=== PATIENT | female | born 1940 | race American Indian/Alaskan Native ===

== ENCOUNTER 2018-10-08 20:23 | Inpatient (IN) | payer MEDICARE ==
[~2018-10-08 20:23] MED LIST: ADRENALIN ONE
[2018-10-08] MEDS ORDERED: SODIUM CHLORIDE FLUSH SYRINGE 10 ML IV PRN (20:34)
[2018-10-08] MEDS ORDERED: PROVENTIL IH PRN (20:34)
[2018-10-08] MEDS ORDERED: NACL 0.9% 1000 ML 1,000 ML IV ONE ×3 (20:37→23:55)
[2018-10-08] MEDS ORDERED: LEVOPHED DRIP 4 MG/NS 250 ML 4 MG/250 ML BAG IV ONE (20:38)
--- NOTE | 2018-10-08 20:38 | History and Physical Report ---
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 Pt is unresponsive and unable to provide history. Pt was found down and unresponsive today by SNF staff. EMS notified and upon arrival the patient was found to be unresponsive with what EMS reports as blood in her mouth. Pt was found to be unable to protect her airway. Pt intubated in the field and transported to [facility]. Pt experienced cardiac arrest en route. Pt treated with initiation of ACLs protocol. Pt arrived to ED in cardiac arrest. Pt seen and evaluated in ED and treated with continuation of ACLS protocol with return of perfusing cardiac rhythm. Pt found to have Acute Respiratory Failure, Acute renal Failure, Hypokalemia, Hypocalcemia, Acidosis, and Encephlopathy. No further history obtainable. No prior admission for review. No medication listed at time of admission for reconciliation. Pt admitted to ICU, and initiated on IV pressor support. Past History Past Medical History: other (Unable to Obtain) Past Surgical History: Other (PICC line placement) Social history: single Family history: no significant family history, other (Unable to obtain) Medications and Allergies Allergies Allergy/AdvReac Type Severity Reaction Status Date / Time ciprofloxacin [From Cipro] Allergy Anaphylaxis Verified 10/08/18 21:10 iodine Allergy Anaphylaxis Verified 10/08/18 21:11 Home Medications Medication Instructions Recorded Confirmed Last Taken Type Unobtainable 10/08/18 10/08/18 Unknown History Active Meds: Active Medications Albuterol (Proventil) 2.5 mg IH Q3HRT PRN PRN Reason: Shortness Of Breath Sodium Chloride (Nacl 0.9% 1000 Ml) 1,000 mls @ 999 mls/hr IV BOLUS ONE Stop: 10/08/18 21:37 Sodium Chloride (Nacl 0.9% 1000 Ml) 1,000 mls @ 42 mls/hr IV ONCE ONE Stop: 10/09/18 20:25 Sodium Chloride (Sodium Chloride Flush Syringe 10 Ml) 10 ml IV BID ADOLFO Sodium Chloride (Sodium Chloride Flush Syringe 10 Ml) 10 ml IV PRN PRN PRN Reason: LINE FLUSH Review of Systems ROS unobtainable: due to endotracheal tube, due to mental status Exam - Constitutional General appearance: Present: severe distress - EENT Eyes: Present: miosis - Neck Neck: Present: supple, normal ROM - Respiratory Respiratory effort: labored Respiratory: bilateral: diminished, rhonchi - Cardiovascular Heart Sounds: Present: S1 & S2. Absent: rub, click - Extremities Extremities: pulses symmetrical Extremity abnormal: edema Peripheral Pulses: within normal limits (diminished, 1,= BUE/BLE) - Abdominal General gastrointestinal: Present: soft, non-tender, non-distended, normal bowel sounds Female genitourinary: Present: normal - Integumentary Integumentary: Present: clear, warm, dry - Musculoskeletal Musculoskeletal: generalized weakness - Psychiatric Psychiatric: no appropriate mood/affect, no intact judgment & insight, no memory intact - Neurologic Neurologic: CNII-XII intact, no moves all extremities, no gait normal Results - Labs CBC & Chem 7: 10/08/18 20:39 10/08/18 20:39 Assessment and Plan - Patient Problems (1) Respiratory failure Current Visit: Yes Status: Acute Qualifiers: Chronicity: acute Respiratory failure complication: hypoxia Qualified Code(s): J96.01 - Acute respiratory failure with hypoxia Plan to address problem: Admit to ICU, Pt intubated, sedated, placed on vent support, Chest X ray, CT chest, supplemental oxygen, nebulizer therapy, wean vent as tolerated, pulse oximetry, The high probability of a clinically significant, sudden or life threatening deterioration of the [cardiac, renal, neuro, respiratory] system(s) required my full and direct attention, intervention and personal management. The aggregate critical care time was [90] minutes. This time is in addition to time spent performing reported procedures but includes the following: [x] Data Review and interpretation [x] Patient assessment and monitoring of vital signs [x] Documentation [x] Medication orders and management (2) Hypocalcemia syndrome Current Visit: Yes Status: Acute Plan to address problem: IV calcium repletion, repeat calcium level in AM, Nephrology consulted, (3) Acidosis Current Visit: Yes Status: Acute Plan to address problem: IVF resuscitation therapy, supportive care. (4) ARF (acute renal failure) with tubular necrosis Current Visit: Yes Status: Acute Plan to address problem: IVF resuscitation therapy, nephrology consulted in ED (5) Hypokalemia Current Visit: Yes Status: Acute Plan to address problem: Repleted, in ED, supportive care, repeat bmp in am. (6) Cardiac arrest Current Visit: Yes Status: Acute Plan to address problem: PT treated IAW ACLS protocol with return of perfusing cardiac rhythm, Pt initiated on IV pressor support. (7) GI bleed Current Visit: Yes Status: Acute Qualifiers: GI bleed type/associated pathology: unspecified gastrointestinal hemorrhage type Qualified Code(s): K92.2 - Gastrointestinal hemorrhage, unspecified Plan to address problem: GI consulted in ED. PRBC transfusion, IVF resuscitation therapy, IV ppi therapy, (8) DVT prophylaxis Current Visit: Yes Status: Acute Plan to address problem: SCD to BLE while in bed, hold anticoagulation secondary to GI bleed.
[2018-10-08] MEDS ORDERED: ARTIFICIAL TEARS OPHTH OINT OU PRN (20:39)
[2018-10-08] MEDS ORDERED: VASELINE LIP THERAPY TP PRN (20:39)
[2018-10-08 20:49] LABS: Mean Corpuscular HGB Conc 32 % (30-34); Mean Corpuscular Volume 103 fl (79-97); Platelet Count 489 K/mm3 (140-440); Red Blood Count 1.78 M/mm3 (3.65-5.03)
--- NOTE | 2018-10-08 20:57 | Procedure Note ---
Date of procedure: 10/08/18 Pre-op diagnosis: respiratory failure Procedure: RIJV Central Line Placement under Ultrasound Guidance Timeout was taken to verify correct patient, procedure, and operative site. Pt was prepped and draped in the usual sterile fashion. RIJV identified with ultrasound. Local anesthesia obtained with lidocaine 1%. Seldinger technique utilized to access the RIJV with seeker needle without difficulty. A guidewire was advanced into the RIJV and the seeker needle removed over the guidewire. A scalpel was used to incise the skin, and a dilator was passed over the guidewire then removed. A preflushed triple lumen catheter was then advanced into the RIJV and the guidewire removed. Triple lumen sewn in place, and a biopatch placed at insertion site. All 3 ports flush and draw with ease. Postop Chest X ray did not reveal pneumothorax. EBL: Minimal Specimen:none Anesthesia: local Surgeon: RORO BRICE Estimated blood loss: minimal Pathology: none Condition: critical Disposition: ICU
[2018-10-08 21:02] LABS: Hematocrit 18.3 % (30.3-42.9); Hemoglobin 5.9 gm/dl (10.1-14.3)
[2018-10-08] MEDS ORDERED: NACL 0.9% 500 ML 500 ML IV ONE (21:04)
[2018-10-08 21:11] LABS: Albumin 1.3 g/dL (3.9-5)
--- NOTE | 2018-10-08 21:31 | Emergency Department Report ---
ED General Adult HPI - General Chief complaint: Cardiac Arrest/CPR Stated complaint: CARDIAC ARREST Time Seen by Provider: 10/08/18 20:38 Source: EMS Mode of arrival: Stretcher Limitations: Other - History of Present Illness Initial comments: Patient is a 77-year-old [place] female who is presenting from a shelter in cardiac arrest.EMS called secondary to patient being unresponsive and having what looked like bloody gastric contents from the mouth. The paramedics arrived the patient was in sinus rhythm but unresponsive. Patient had no gag reflex. Patient was intubated with 7-0 endotracheal tube. Patient was transported here and just before arrival lost her pulse. CPR was initiated. Patient is only other history is that recently the patient has had a diagnosis of sepsis and does have a PICC line in the right upper extremity. The infection origin is not known at this time. - Related Data Home Medications Medication Instructions Recorded Confirmed Last Taken Unobtainable 10/08/18 10/08/18 Unknown Allergies Allergy/AdvReac Type Severity Reaction Status Date / Time ciprofloxacin [From Cipro] Allergy Anaphylaxis Verified 10/08/18 21:10 iodine Allergy Anaphylaxis Verified 10/08/18 21:11 ED Review of Systems ROS: Stated complaint: CARDIAC ARREST Other details as noted in HPI Comment: Unobtainable due to pts medical conditions ED Past Medical Hx - Medications Home Medications: Home Medications Medication Instructions Recorded Confirmed Last Taken Type Unobtainable 10/08/18 10/08/18 Unknown History ED Physical Exam - General Limitations: Other General appearance: obtunded - Head Head exam: Present: atraumatic, normocephalic - Eye Pupils: Present: other (pupils are poorly responsive) - ENT ENT exam: Present: other (patient with copious amounts of brown coffee-ground emesis from the mouth.) - Neck Neck exam: Present: normal inspection, other - Respiratory Respiratory exam: Present: other (patient is intubated with coarse lung sounds bilaterally with bagging) - Cardiovascular Cardiovascular Exam: Present: other (unable to palpate a pulse at the time of arrival) - GI/Abdominal GI/Abdominal exam: Present: soft, distended - Skin Skin exam: Present: warm, dry, intact, pallor ED Course Vital Signs 10/08/18 20:50 Pulse Rate 63 ED Medical Decision Making - Lab Data Result diagrams: 10/08/18 20:39 10/08/18 20:39 - Medical Decision Making On arrival the patient was in PDA with a bradycardic rhythm. No pulse was ever be palpated. After several rounds of epinephrine and bicarbonate and D50 the patient did have return of spontaneous circulation with a pulse. Heart rate wilner to 170. Blood pressure was in the 80s systolic. Decision was made to do a second eyes cardioversion for her narrow complex ventricular tachycardia. Patient's cardioverted 100 J. Patient then had a bounding pulse with heart rate 130s which appeared to be a sinus tachycardia. Patient initially with blood pressure in the 80s. Patient started on levo faded. Dr. Vickers of the hospitalist service at bedside with the plan to admit the patient to the ICU for further evaluation. Patient's had labs drawn. Central line placed by Dr. Vickers. After approximately 20 minutes patient did become hypotensive again despite IV fluid resuscitation and leave the. Patient then went into asystole. CPR was initiated again another round of epinephrine was given. Patient had no return of spontaneous circulation the patient was pronounced at 2122. Critical care attestation.: If time is entered above; I have spent that time in minutes in the direct care of this critically ill patient, excluding procedure time. ED Disposition Clinical Impression: Cardiac arrest, GI bleed Disposition: DC-20 Is pt being admited?: No Does the pt Need Aspirin: No Condition: Stable Time of Disposition: 21:34
[2018-10-08 21:33] LABS: Calcium 5.3 mg/dL (8.4-10.2)
[2018-10-08 21:34] LABS: INR 2.21 (0.87-1.13)
[2018-10-08 21:35] LABS: Partial Thromboplastin Time 51.4 Sec. (24.2-36.6)
[2018-10-08 21:37] LABS: Band Neutrophils # (Manual) 0.1 K/mm3; Basophils % (Manual) 0 % (0.0-1.8); Eosinophils % (Manual) 0 % (0.0-4.3); Total Cells Counted 100
[2018-10-08 21:38] LABS: Anisocytosis 2+; Crenated RBC 2+; Platelet Estimate Consistent w Auto
--- NOTE | 2018-10-08 21:51 | XRay Report ---
CHEST 1 VIEW INDICATION: ETT placement COMPARISON: None FINDINGS: Support devices: Endotracheal tube in good position. Right jugular line and right PICC line projected over the superior vena cava. Heart: Normal Lungs/Pleura: Linear atelectasis in the lung bases but no definite acute disease. IMPRESSION: 1. No acute abnormalities. Signer Name: Carlos Varela MD Signed: 10/08/2018 9:46 PM Workstation Name: [id number]
[2018-10-08] MEDS ORDERED: SODIUM CHLORIDE FLUSH SYRINGE 10 ML IV SCH (22:00)
[2018-10-08 22:49] VITALS: BP 45/29
[2018-10-08] MEDS ORDERED: CALCIUM CHLORIDE 1,000 MG in NACL 0.9% 100 ML IV ONE (23:33)
[2018-10-08] MEDS ORDERED: KCL 20MEQ/100ML 20 MEQ/100 ML BAG IV SCH (23:45)
== END 2018-10-08 23:45 | DRG 208 ==
LOC: ED 20:23 → CC1 20:34
PROVIDERS: ADMIT Internal Medicine; ATTEND Internal Medicine
PROC: 5A1935Z Respiratory Ventilation, Less than 24 Consecutive Hours (ICD-10-PCS; principal; 2018-10-08)
PROC: 02HV33Z Insertion of Infusion Device into Superior Vena Cava, Percutaneous Approach (ICD-10-PCS; 2018-10-08)
PROC: B548ZZA Ultrasonography of Superior Vena Cava, Guidance (ICD-10-PCS; 2018-10-08)
PROC: 5A2204Z Restoration of Cardiac Rhythm, Single (ICD-10-PCS; 2018-10-08)
PROC: 5A12012 Performance of Cardiac Output, Single, Manual (ICD-10-PCS; 2018-10-08)
DX: J96.01 Acute respiratory failure with hypoxia (principal); N17.0 Acute kidney failure with tubular necrosis; K92.2 Gastrointestinal hemorrhage, unspecified; E87.2 Acidosis; G93.40 Encephalopathy, unspecified; I46.9 Cardiac arrest, cause unspecified; I50.9 Heart failure, unspecified; E87.6 Hypokalemia; E83.51 Hypocalcemia; Z88.1 Allergy status to other antibiotic agents; Z91.041 Radiographic dye allergy status
CPT/HCPCS: 36415; 36430; 71045; 80053; 82140; 84484; 85007; 85025; 85610; 85730; 87040; 92950; 93005; 93010; 94002; 96361; 96374; G0378; J0171; J3480; J7030